=== PATIENT | female | born 1985 | race African-American/Black ===

== ENCOUNTER 2019-11-29 02:03 | Emergency (ER) | payer OTHER ==
[~2019-11-29] VITALS: Ht 162.6 cm; Wt 81.7 kg
[~2019-11-29 02:03] MED LIST: AMOXICILLIN500 M1 PO; AMOXICILLIN875 MG PO; CITRATE OF MAG296 ML PO; LOMOTIL TABLET1 EACH PO; NOHOMEMEDICATIONS; NORCO 5-325 TA1 EACH PO; ZOFRAN4 MG PO
[2019-11-29 02:56] LABS: ABSOLUTE NEUTROPHILS 3.3 thou/uL (1.4-8.2); BASOPHILS 0.9 % (0.0-2.0); EOSINOPHILS 2.2 % (0.0-3.0); HEMATOCRIT 44.1 % (37.0-47.0); HEMOGLOBIN 14.9 gm/dL (12.0-15.0); LYMPHOCYTES 42.8 % (24.0-44.0); MCH 31.2 pg (26.0-34.0); MCHC 33.8 g/dL (28.0-37.0); MCV 92.3 fL (80.0-100.0); MONOCYTES 8.5 % (1.0-8.0); PLATELET COUNT 237 thou/uL (150-400); POLYS 45.6 % (36.0-66.0); RBC 4.78 mil/uL (4.20-5.00); RDW 14.1 % (10.5-14.5); WBC 7.3 thou/uL (4.0-11.0)
[2019-11-29 03:01] LABS: CALCIUM 8.3 mg/dL (8.5-10.1); CREATININE 1.3 mg/dL (0.6-1.0); MAGNESIUM 2.2 mg/dL (1.8-2.4); POTASSIUM 3.5 mmol/L (3.5-5.1)
[2019-11-29] MEDS ORDERED: NORCO 5-325 TA1 EAC1 PO (11:53)
[2019-11-29] MEDS ORDERED: KEFLEX500 M2 PO (11:53)
[2019-11-29 12:14] VITALS: BP 146/82
== END 2019-11-29 12:15 | disposition home or self-care (01) ==
LOC: ER 02:03
PROVIDERS: Emergency Medicine
DX: S62.399A Other fracture of unspecified metacarpal bone, initial encounter for closed fracture (principal); S41.112A Laceration without foreign body of left upper arm, initial encounter; S70.211A Abrasion, right hip, initial encounter; F10.129 Alcohol abuse with intoxication, unspecified; R41.82 Altered mental status, unspecified; F17.210 Nicotine dependence, cigarettes, uncomplicated; Z79.899 Other long term (current) drug therapy; V49.9XXA Car occupant (driver) (passenger) injured in unspecified traffic accident, initial encounter; Y93.89 Activity, other specified; Y92.89 Other specified places as the place of occurrence of the external cause; Y99.8 Other external cause status; Y90.9 Presence of alcohol in blood, level not specified